=== PATIENT | male | born 2000 | race Hispanic/Latino ===

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

== ENCOUNTER 2021-11-07 00:41 | Emergency (ER) | payer MEDICAID, OTHER ==
[2021-11-07 00:43] VITALS: BP 128/72
[2021-11-07] MEDS ORDERED: HYDR25CA PO (01:25)
== END 2021-11-07 01:33 | disposition home or self-care (01) ==
LOC: EDH 00:41
DX: F43.0 Acute stress reaction (principal)
CPT/HCPCS: 93005